=== PATIENT | female | born 1995 | race Caucasian/White ===

== ENCOUNTER 2016-06-05 21:44 | Emergency (ER) | payer MEDICAID ==
[~2016-06-05] VITALS: Ht 157.5 cm; Wt 76.0 kg
[2016-06-05 22:24] VITALS: BP 109/63
[2016-06-05] MEDS ORDERED: IBUPROFEN 600 MG TABLET PO ONE (22:45)
[2016-06-05] MEDS ORDERED: AMOXICILLIN TRIHYDRATE 250 MG CAPSULE PO ONE (22:45)
[2016-06-05] MEDS ORDERED: HYDROCODONE/ACETAMINOPHEN 5-325 MG TABLET PO ONE (22:45)
== END 2016-06-05 22:48 | disposition home or self-care (01) ==
LOC: EMS 21:46
DX: K08.89 Other specified disorders of teeth and supporting structures (principal)
CPT/HCPCS: 99284